=== PATIENT | female | born 1950 | race Caucasian/White ===

== ENCOUNTER 2024-01-08 11:11 | Inpatient (IN) | payer MEDICARE ==
[~2024-01-08] VITALS: Ht 165.1 cm; Wt 90.7 kg
[2024-01-08] MEDS ORDERED: TEMAZEPAM 7.5 MG CAPSULE PO PRN ×3 (19:00→20:00)
[2024-01-08] MEDS ORDERED: LORAZEPAM 0.5 MG TABLET PO PRN ×2 (19:00→20:00)
[2024-01-08] MEDS ORDERED: WARF1TAB86 PO (19:46)
[2024-01-08] MEDS ORDERED: MAGN400O6 PO (19:46)
[2024-01-08] MEDS ORDERED: ACET-637 PO (19:46)
[2024-01-08] MEDS ORDERED: FURO20TA4 PO (19:46)
[2024-01-08] MEDS ORDERED: METO25TA4 PO (19:46)
[2024-01-08] MEDS ORDERED: METO-357 PO (19:46)
[2024-01-08] MEDS ORDERED: QUET100T PO (19:46)
[2024-01-08] MEDS ORDERED: ATOR20TA PO (19:46)
[2024-01-08] MEDS ORDERED: METF-440 PO (19:46)
[2024-01-08] MEDS ORDERED: CLON0.5T4 PO (19:46)
[2024-01-08] MEDS ORDERED: MAG30ORA PO (19:46)
[2024-01-08 20:00] VITALS: BP 114/74; TEMP 97.9; O2SAT 98
[2024-01-08] MEDS ORDERED: MAGNESIUM HYDROXIDE 30 ML UDC PO PRN (20:00)
[2024-01-08] MEDS ORDERED: ACETAMINOPHEN 325 MG TABLET PO PRN (20:00)
[2024-01-08] MEDS ORDERED: MAG HYDROX/AL HYDROX/SIMETH 30 ML UDC PO PRN (20:00)
[2024-01-08] MEDS: BLOOD SUGAR DIAGNOSTIC 1 EACH STRIP IN ONE (20:26)
[2024-01-08] MEDS: ATORVASTATIN 10 MG TABLET PO SCH (21:26)
[2024-01-08] MEDS: METOPROLOL SUCCINATE 50 MG TAB.SR.24H PO SCH (21:26)
[2024-01-08 21:39] VITALS: BP 114/74; TEMP 97.9; O2SAT 98
[2024-01-09 08:00] VITALS: BP 110/99; TEMP 97.9; O2SAT 97
[2024-01-09 08:00] LABS: PROTHROMBIN TIME 10.6 SECS (9.2-11.1)
[2024-01-09 08:09] LABS: ALANINE AMINOTRANSFERASE 41 U/L (12-78); ALBUMIN 3.8 g/dL (3.4-5.0); ALKALINE PHOSPHATASE 125 U/L (46-116); ASPARTATE AMINOTRANSFERASE 26 U/L (15-37); BILIRUBIN,TOTAL 1.1 mg/dL (0.2-1.0); CALCIUM, SERUM 10.5 mg/dL (8.5-10.1); CARBON DIOXIDE 33 mmol/L (21-32); CHLORIDE 98 mmol/L (98-107); CREATININE 0.9 mg/dL (0.6-1.3); GLUCOSE 127 mg/dL (74-106); POTASSIUM 3.8 mmol/L (3.5-5.1); SODIUM SERUM 138 mmol/L (136-145); TOTAL PROTEIN, SERUM 8.4 g/dL (6.4-8.2); UREA NITROGEN, BLOOD 12 mg/dL (7-18)
[2024-01-09] MEDS: FUROSEMIDE 20 MG TABLET PO SCH (08:19)
[2024-01-09] MEDS: METFORMIN 500 MG TABLET PO SCH (08:19)
[2024-01-09] MEDS: METOPROLOL SUCCINATE 25 MG TAB.SR.24H PO SCH (08:23)
[2024-01-09 09:05] LABS: CHOLESTEROL 205 mg/dL (<200); HDL CHOLESTEROL 58 mg/dL (40-60); LDL 129 mg/dL (0-99); TRIGLYCERIDES 89 mg/dL (30-150)
[2024-01-09] MEDS: risperiDONE 0.25 MG TABLET PO SCH (10:27)
[2024-01-09 16:00] VITALS: BP 102/65; TEMP 97.9; O2SAT 100
[2024-01-09] MEDS: WARFARIN SODIUM 1 MG TABLET PO SCH (16:31)
[2024-01-09 18:56] LABS: THYROID STIMULATING HORMONE 6.29 uIU/mL (0.358-3.74)
[2024-01-09 20:00] VITALS: BP 104/74; TEMP 97.9; O2SAT 97
[2024-01-10 08:00] VITALS: BP 106/69; TEMP 98.1; O2SAT 97
[2024-01-10] MEDS: risperiDONE-M 0.5 MG TAB.RAPDIS PO SCH (13:00)
[2024-01-10 16:00] VITALS: BP 101/72; TEMP 97.8; O2SAT 98
[2024-01-10 20:00] VITALS: BP 123/78; TEMP 97.6; O2SAT 97
[2024-01-11 07:00] LABS: BASOPHILS # (AUTO) 0.1 K/uL (0.0-0.2); EOSINOPHILS # (AUTO) 0.2 K/uL (0.0-0.7); EOSINOPHILS % (AUTO) 2.8 % (0.0-6.0); HEMATOCRIT 43 % (33-45); HEMOGLOBIN 14.5 g/dL (11.5-14.8); LYMPHOCYTES # (AUTO) 1.5 K/uL (0.8-4.8); LYMPHOCYTES % (AUTO) 19.7 % (20.0-44.0); MEAN CORPUSCULAR HEMOGLOBIN 32 PG (26.0-33.0); MEAN CORPUSCULAR HGB CONC 34 g/dl (31.0-36.0); MEAN CORPUSCULAR VOLUME 95 fL (82-100); MONOCYTES % (AUTO) 13.3 % (2.0-12.0); NEUTROPHILS # (AUTO) 4.7 K/uL (1.8-8.9); NEUTROPHILS % (AUTO) 63.2 % (43.0-81.0); PLATELET COUNT (AUTO) 223 K/uL (150-450); RED BLOOD CELL COUNT(AUTO) 4.57 MIL/uL (4.0-5.2); RED CELL DISTRIBUTION WIDTH 13.9 % (11.5-15.0); WHITE BLOOD COUNT (AUTO) 7.4 K/uL (4.3-11.0)
[2024-01-11 07:12] LABS: ALANINE AMINOTRANSFERASE 31 U/L (12-78); ALBUMIN 3.1 g/dL (3.4-5.0); ALKALINE PHOSPHATASE 113 U/L (46-116); ASPARTATE AMINOTRANSFERASE 24 U/L (15-37); BILIRUBIN,TOTAL 1.1 mg/dL (0.2-1.0); CALCIUM, SERUM 9.5 mg/dL (8.5-10.1); CARBON DIOXIDE 29 mmol/L (21-32); CHLORIDE 102 mmol/L (98-107); CREATINE KINASE, TOTAL 100 U/L (26-192); CREATININE 0.9 mg/dL (0.6-1.3); GLUCOSE 121 mg/dL (74-106); MAGNESIUM 2.3 mg/dL (1.8-2.4); PHOSPHORUS 3.8 mg/dL (2.5-4.9); POTASSIUM 4.2 mmol/L (3.5-5.1); SODIUM SERUM 140 mmol/L (136-145); TOTAL PROTEIN, SERUM 7.2 g/dL (6.4-8.2); UREA NITROGEN, BLOOD 10 mg/dL (7-18)
[2024-01-11 08:00] VITALS: BP 121/66; TEMP 97.6; O2SAT 92
[2024-01-11 08:06] LABS: FOLIC ACID 15.9 ng/mL (>3.0)
[2024-01-11] MEDS ORDERED: WARFARIN SODIUM 5 MG TABLET PO SCH (08:30)
[2024-01-11] MEDS: WARFARIN SODIUM 5 MG TABLET PO ONE (13:26)
[2024-01-11 16:00] VITALS: BP 100/59; TEMP 97.8; O2SAT 99
[2024-01-11 20:45] VITALS: BP 92/60; TEMP 97.8; O2SAT 98
[2024-01-12 08:00] VITALS: BP 100/53; TEMP 97.9; O2SAT 95
[2024-01-12 11:06] LABS: PTH, INTACT 18 pg/mL (15-65)
[2024-01-12 16:00] VITALS: BP 106/86; TEMP 98.7; O2SAT 96
[2024-01-12 20:30] VITALS: BP 114/60; TEMP 97.8; O2SAT 95
[2024-01-13] MEDS: LORAZEPAM 0.5 MG TABLET PO PRN (07:52)
[2024-01-13 08:00] VITALS: BP 111/88; TEMP 97.9; O2SAT 95
[2024-01-13 12:12] LABS: *SPE ALBUMIN 3.2 g/dL (2.9-4.4); *SPE ALPHA-1-GLOBULIN 0.3 g/dL (0.0-0.4); *SPE ALPHA-2-GLOBULIN 0.7 g/dL (0.4-1.0); *SPE BETA GLOBULIN 1.3 g/dL (0.7-1.3); *SPE GLOBULIN, TOTAL 3.3 g/dL (2.2-3.9); *SPE M-SPIKE Not Observed g/dL (Not Observed); *SPE PROTEIN TOTAL 6.5 g/dL (6.0-8.5); *SPEGAMMA GLOBULIN 0.9 g/dL (0.4-1.8)
[2024-01-13] MEDS: DIVALPROEX SODIUM 125 MG CAP.SPRINK PO SCH (12:46)
[2024-01-13 16:00] VITALS: BP 100/70; TEMP 98.8; O2SAT 96
[2024-01-13 20:29] VITALS: BP 104/50; TEMP 97.9; O2SAT 95
[2024-01-13] MEDS: risperiDONE 1 MG TABLET PO SCH (22:00)
[2024-01-14 08:00] VITALS: BP 119/66; TEMP 97.9; O2SAT 95
[2024-01-14 16:00] VITALS: BP 100/62; TEMP 98.2; O2SAT 96
[2024-01-15 08:00] VITALS: BP 125/90; TEMP 97.8; O2SAT 96
[2024-01-15 16:00] VITALS: BP 102/77; TEMP 97.9; O2SAT 97
[2024-01-15 20:00] VITALS: BP 96/62; TEMP 98.2; O2SAT 97
[2024-01-15] MEDS: risperiDONE 1 MG TABLET PO SCH (21:48)
[2024-01-16 08:00] VITALS: BP 96/73; TEMP 97.8; O2SAT 96
[2024-01-16 16:00] VITALS: BP 122/73; TEMP 98.4; O2SAT 97
[2024-01-17 08:00] VITALS: BP 90/50; TEMP 98; O2SAT 100
[2024-01-17 16:00] VITALS: BP 113/99; TEMP 97.9; O2SAT 97
[2024-01-17 20:00] VITALS: BP 112/67; TEMP 98.2; O2SAT 100
[2024-01-18 08:24] VITALS: BP 128/68; TEMP 98; O2SAT 98
[2024-01-18 15:39] VITALS: BP 93/53; TEMP 98.9; O2SAT 99
[2024-01-18 20:17] VITALS: BP 97/62; TEMP 97.5; O2SAT 99
[2024-01-19 08:00] VITALS: BP 99/70; TEMP 97.8; O2SAT 98
[2024-01-19 16:01] VITALS: BP 90/50; TEMP 97.8; O2SAT 97
[2024-01-19 20:40] VITALS: BP 97/57; TEMP 98.1; O2SAT 99
[2024-01-20 08:00] VITALS: BP 106/84; TEMP 98.7; O2SAT 96
[2024-01-20 16:00] VITALS: BP 127/107; TEMP 97.7; O2SAT 99
[2024-01-20] MEDS: APIXABAN 5 MG TABLET PO SCH (16:46)
[2024-01-20 21:03] VITALS: BP 114/73; TEMP 97.8; O2SAT 98
[2024-01-22 08:00] VITALS: BP 101/60; TEMP 98.8; O2SAT 98
[2024-01-22 16:00] VITALS: BP 98/62; TEMP 98.6; O2SAT 98
[2024-01-23 07:19] LABS: INR 1.02 (0.91-1.10); PROTHROMBIN TIME 10.8 SECS (9.2-11.1)
[2024-01-23 08:00] VITALS: BP 120/73; TEMP 97.6; O2SAT 95
[2024-01-23 16:00] VITALS: BP 108/85; TEMP 97.7; O2SAT 97
[2024-01-24 08:00] VITALS: BP 110/77; TEMP 98.6; O2SAT 99
[2024-01-24 08:12] VITALS: BP 110/77
== END 2024-01-24 13:15 | DRG 885 ==
LOC: GPS 18:24
PROVIDERS: ADMIT Nurse Practitioner Psychiatric/Mental Health; ATTEND Nurse Practitioner Acute Care
DX: F25.9 Schizoaffective disorder, unspecified (principal); I11.0 Hypertensive heart disease with heart failure; F29 Unspecified psychosis not due to a substance or known physiological condition; I48.91 Unspecified atrial fibrillation; Z66 Do not resuscitate; I50.9 Heart failure, unspecified; Z73.6 Limitation of activities due to disability; E11.9 Type 2 diabetes mellitus without complications; E78.5 Hyperlipidemia, unspecified; E66.9 Obesity, unspecified; Z68.33 Body mass index [BMI] 33.0-33.9, adult; Z79.01 Long term (current) use of anticoagulants; Z79.84 Long term (current) use of oral hypoglycemic drugs; Z79.899 Other long term (current) drug therapy; Z86.19 Personal history of other infectious and parasitic diseases; R79.1 Abnormal coagulation profile; Z53.20 Procedure and treatment not carried out because of patient's decision for unspecified reasons; Z91.199 Patient's noncompliance with other medical treatment and regimen due to unspecified reason; Z91.148 Patient's other noncompliance with medication regimen for other reason; I08.0 Rheumatic disorders of both mitral and aortic valves; I09.9 Rheumatic heart disease, unspecified; E83.52 Hypercalcemia; J44.9 Chronic obstructive pulmonary disease, unspecified; E86.9 Volume depletion, unspecified
CPT/HCPCS: 36415; 76700-TC; 80048-TC; 80053-TC; 80061-TC; 82550-TC; 82607-TC; 82962-TC; 83735-TC; 83921; 83970; 84100-TC; 84155; 84165; 84425; 84443-TC; 85025-TC; 85610-TC; 97110-TC; 97116-TC; 97530-TC